=== PATIENT | female | born 1995 | race Caucasian/White ===

== ENCOUNTER 2023-12-24 06:27 | Emergency (ER) | payer OTHER ==
[2023-12-24 07:02] LABS: APPEARANCE,URINE CLEAR (CLEAR); BILIRUBIN,URINE NEGATIVE (NEGATIVE); COLOR,URINE YELLOW (YELLOW); GLUCOSE,URINE NEGATIVE (NEGATIVE); KETONES,URINE NEGATIVE (NEGATIVE); LEUKOCYTE ESTERASE,URINE TRACE (NEGATIVE); NITRITE,URINE NEGATIVE (NEGATIVE); OCCULT BLOOD,URINE NEGATIVE (NEGATIVE); PH,URINE 6.5 (5.0-9.0); PROTEIN,URINE NEGATIVE (NEGATIVE); UROBILINOGEN,URINE 0.2 mg/dL (0.2-1.0)
[2023-12-24] MEDS: Sodium Chloride 0.9% 10 ML Syringe FLUSH PRN (07:25)
[2023-12-24] MEDS: Ketorolac 30 MG/ML SDV IVPUSH ONE (07:28)
[2023-12-24] MEDS: Sodium Chloride 0.9% 1,000 ML IV ONE (07:28)
[2023-12-24] MEDS: Ondansetron 4 MG/2 ML SDV IV ONE (07:29)
[2023-12-24 07:51] LABS: ALBUMIN 3.7 g/dL (3.4-5.0); ANION GAP 13.8 mEq/L (7-13); BILIRUBIN TOTAL 0.4 mg/dL (0.2-1.0); BUN/CREATININE RATIO 9.5 (No establ ref range); CALCIUM 8.9 mg/dL (8.5-10.1); CREATININE 0.95 mg/dL (0.55-1.02); EST CRCL DRUG DOSING (CG) 87.27 mL/min; POTASSIUM,K 3.8 mmol/L (3.5-5.1); PROTEIN TOTAL,TP 7.4 g/dL (6.4-8.2)
[2023-12-24 08:00] LABS: BASOPHILS PERCENT AUTO 0.3 % (0.0-1.0); EOSINOPHILS PERCENT AUTO 0.1 % (1.0-3.0); HEMATOCRIT 43.2 % (37.0-47.0); HEMOGLOBIN 14.3 g/dL (12.0-16.0); MEAN CORPUSCULAR HEMOGLOBIN 29.8 pg (27.0-34.0); MEAN CORPUSCULAR HGB CONC 33.1 g/dL (33.0-35.0); MONOCYTES PERCENT AUTO 10.9 % (2-8); NEUTROPHILS PERCENT AUTO 70.7 % (42.2-75.2); PLATELET COUNT,PLT 299 10^3/uL (150-450); WHITE BLOOD CELL COUNT,WBC 9.4 10^3/uL (5.0-10.0)
[2023-12-24 08:04] LABS: BACTERIA,URINE RARE /HPF (0-FEW/HPF); EPITHELIAL CELLS,URINE FEW /HPF (NOT SEEN); MUCUS,URINE FEW /LPF (NOT SEEN); RBC,URINE NOT SEEN /HPF (0-5)
== END 2023-12-24 08:34 | disposition home or self-care (01) ==
LOC: DL.ED 06:27
DX: B34.9 Viral infection, unspecified (principal)
CPT/HCPCS: 36415; 80053; 81001; 81025; 85025; 87086; 87635; 87804; 96361; 96374; 96375; 99284; J1885; J2405; J7030; J3490; U0002

== ENCOUNTER 2023-12-28 08:38 | Inpatient (IN) | payer OTHER ==
[2023-12-28] MEDS: Albuterol/Ipratropium 3.0-0.5 MG/3 ML Neb Soln NEB ONE (09:28)
[2023-12-28 09:31] LABS: BASOPHILS PERCENT AUTO 0.3 % (0.0-1.0); HEMATOCRIT 39.3 % (37.0-47.0); HEMOGLOBIN 13.1 g/dL (12.0-16.0); LYMPHOCYTES PERCENT AUTO 18.4 % (20.5-50.1); MEAN CORPUSCULAR HGB CONC 33.3 g/dL (33.0-35.0); MEAN CORPUSCULAR VOLUME 89.9 fL (80-100); MONOCYTES PERCENT AUTO 10.8 % (2-8); NEUTROPHILS PERCENT AUTO 69.5 % (42.2-75.2); PLATELET COUNT,PLT 309 10^3/uL (150-450); RED BLOOD CELL COUNT 4.37 10^6/uL (4.2-5.4); WHITE BLOOD CELL COUNT,WBC 9.3 10^3/uL (5.0-10.0)
[2023-12-28] MEDS: Sodium Chloride 0.9% 1,000 ML IV ONE (09:42)
[2023-12-28 09:50] LABS: ALANINE AMINOTRANSFERASE,ALT 58 U/L (14-59); ALBUMIN 3.1 g/dL (3.4-5.0); ALKALINE PHOSPHATASE 122 U/L (46-116); ANION GAP 15.8 mEq/L (7-13); ASPARTATE AMNIOTRANSFERASE,AST 34 U/L (15-37); BILIRUBIN TOTAL 0.3 mg/dL (0.2-1.0); BLOOD UREA NITROGEN,BUN 5 mg/dL (7-18); BUN/CREATININE RATIO 5.4 (No establ ref range); CALCIUM 8.9 mg/dL (8.5-10.1); CARBON DIOXIDE,CO2 27 mmol/L (21-32); CHLORIDE,CL 101 mmol/L (98-107); CREATININE 0.92 mg/dL (0.55-1.02); EST CRCL DRUG DOSING (CG) 90.11 mL/min; GLUCOSE RANDOM 114 mg/dL (70-99); HCG QUALITATIVE,SERUM NEGATIVE (NEGATIVE); MAGNESIUM 2.2 mg/dL (1.8-2.4); POTASSIUM,K 3.8 mmol/L (3.5-5.1); PROTEIN TOTAL,TP 7.2 g/dL (6.4-8.2); SODIUM,NA 140 mmol/L (136-145)
[2023-12-28] MEDS: Iopamidol 612 MG/ML 100 ML Bottle IVPUSH ONE ×2 (09:51→10:04)
[2023-12-28 09:53] LABS: A/G RATIO 0.76; ESTIMATED GFR 88 mL/min (>=60)
[2023-12-28 09:54] LABS: LACTIC ACID 0.7 mmol/L (0.4-2.0)
[2023-12-28 10:28] LABS: APPEARANCE,URINE CLEAR (CLEAR); BILIRUBIN,URINE NEGATIVE (NEGATIVE); COLOR,URINE YELLOW (YELLOW); GLUCOSE,URINE NEGATIVE (NEGATIVE); KETONES,URINE 40 (NEGATIVE); LEUKOCYTE ESTERASE,URINE NEGATIVE (NEGATIVE); NITRITE,URINE NEGATIVE (NEGATIVE); OCCULT BLOOD,URINE NEGATIVE (NEGATIVE); PROTEIN,URINE NEGATIVE (NEGATIVE); UROBILINOGEN,URINE 0.2 mg/dL (0.2-1.0)
[2023-12-28] MEDS: methylPREDNISolone Sodium Succinate 125 MG/2 ML SDV IVPUSH ONE (11:47)
[2023-12-28] MEDS: cefTRIAXone 1 GM Vial IVPUSH ONE (11:47)
[2023-12-28] MEDS: Azithromycin 500 MG in Sodium Chloride 0.9% 250 ML IV ONE (11:47)
[2023-12-28] MEDS: Ondansetron 4 MG/2 ML SDV IVPUSH ONE (12:02)
[2023-12-28] MEDS: Ondansetron 4 MG/2 ML SDV ONE (12:33)
[2023-12-28] MEDS ORDERED: Acetaminophen/HYDROcodone 325-5 MG Tab PO PRN (13:11)
[2023-12-28] MEDS ORDERED: Albuterol/Ipratropium 3.0-0.5 MG/3 ML Neb Soln NEB PRN (13:11)
[2023-12-28] MEDS ORDERED: Acetaminophen 325 MG Tab PO PRN (13:11)
[2023-12-28] MEDS ORDERED: Sennosides/Docusate Sodium 50-8.6 MG Tab PO PRN (13:11)
[2023-12-28] MEDS ORDERED: Magnesium Hydroxide 400 MG/5 ML Susp 30 ML Cup PO PRN (13:11)
[2023-12-28] MEDS ORDERED: Polyethylene Glycol 3350 Powder 17 GM Packet PO PRN (13:11)
[2023-12-28] MEDS ORDERED: hydrALAZINE 20 MG/ML SDV IVPUSH PRN (13:18)
[2023-12-28] MEDS ORDERED: guaiFENesin/Dextromethorphan 100-10 MG/5 ML Soln 5 ML Cup PO PRN (13:18)
[2023-12-28] MEDS ORDERED: Metoprolol Tartrate 5 MG/5 ML SDV IVPUSH PRN (13:18)
[2023-12-28] MEDS ORDERED: Acetaminophen/Butalbital/Caffeine 325-50-40 MG Tab PO PRN (13:19)
[2023-12-28] MEDS ORDERED: Oxymetazoline 0.05% Nasal Spray 30 ML Bottle NAS PRN (13:19)
[2023-12-28] MEDS: guaiFENesin 600 MG Tab.ER PO ONE (14:37)
[2023-12-28] MEDS: guaiFENesin 600 MG Tab.ER PO SCH (21:20)
[2023-12-28] MEDS: Temazepam 15 MG Cap PO PRN (21:23)
[2023-12-29] MEDS: Ketorolac 30 MG/ML SDV IVPUSH PRN (06:19)
[2023-12-29 06:38] LABS: HEMATOCRIT 36.1 % (37.0-47.0); MEAN CORPUSCULAR HEMOGLOBIN 29.9 pg (27.0-34.0); MEAN CORPUSCULAR HGB CONC 33.2 g/dL (33.0-35.0); PLATELET COUNT,PLT 342 10^3/uL (150-450); RED BLOOD CELL COUNT 4.01 10^6/uL (4.2-5.4); WHITE BLOOD CELL COUNT,WBC 10.2 10^3/uL (5.0-10.0)
[2023-12-29 06:48] LABS: BASOPHILS PERCENT AUTO 0.1 % (0.0-1.0); EOSINOPHILS PERCENT AUTO 0.1 % (1.0-3.0); MONOCYTES PERCENT AUTO 11.8 % (2-8)
[2023-12-29 07:04] LABS: ALBUMIN 2.7 g/dL (3.4-5.0); BILIRUBIN TOTAL 0.3 mg/dL (0.2-1.0); BUN/CREATININE RATIO 10.8 (No establ ref range); C-REACTIVE PROTEIN 12.89 ng/dL (<=0.50); CALCIUM 8.7 mg/dL (8.5-10.1); CREATININE 0.74 mg/dL (0.55-1.02); EST CRCL DRUG DOSING (CG) 112.03 mL/min; MAGNESIUM 2.2 mg/dL (1.8-2.4); PROTEIN TOTAL,TP 6.7 g/dL (6.4-8.2)
[2023-12-29 07:05] LABS: A/G RATIO 0.68
[2023-12-29 07:56] LABS: BAND PERCENT MAN 1 %; LYMPHOCYTES PERCENT MAN 30 % (20-50); MONOCYTES PERCENT MAN 8 % (2-8); SEG NEUTROPHILS PERCENT MAN 61 % (42-75)
[2023-12-29] MEDS: Dexamethasone 6 MG TABLET PO SCH (09:02)
[2023-12-29] MEDS: Famotidine 20 MG Tab PO SCH (09:02)
[2023-12-29] MEDS: cefTRIAXone 1 GM Vial IVPUSH SCH (11:33)
[2023-12-29] MEDS: Ondansetron 4 MG/2 ML SDV IVPUSH PRN (11:33)
[2023-12-29] MEDS: Azithromycin 500 MG in Sodium Chloride 0.9% 250 ML IV SCH (11:33)
[2023-12-30 06:24] LABS: HEMATOCRIT 37.5 % (37.0-47.0); HEMOGLOBIN 12.5 g/dL (12.0-16.0); MEAN CORPUSCULAR HEMOGLOBIN 29.8 pg (27.0-34.0); MEAN CORPUSCULAR HGB CONC 33.3 g/dL (33.0-35.0); MEAN CORPUSCULAR VOLUME 89.5 fL (80-100); PLATELET COUNT,PLT 407 10^3/uL (150-450); RED BLOOD CELL COUNT 4.19 10^6/uL (4.2-5.4); WHITE BLOOD CELL COUNT,WBC 12.2 10^3/uL (5.0-10.0)
[2023-12-30 06:27] LABS: BASOPHILS PERCENT AUTO 0.2 % (0.0-1.0); EOSINOPHILS PERCENT AUTO 0.2 % (1.0-3.0); LYMPHOCYTES PERCENT AUTO 25.5 % (20.5-50.1); MONOCYTES PERCENT AUTO 7.8 % (2-8); NEUTROPHILS PERCENT AUTO 66.3 % (42.2-75.2)
[2023-12-30 07:01] LABS: LYMPHOCYTES PERCENT MAN 23 % (20-50); MONOCYTES PERCENT MAN 10 % (2-8); SEG NEUTROPHILS PERCENT MAN 67 % (42-75)
[2023-12-30 07:08] LABS: ANION GAP 14.8 mEq/L (7-13); BILIRUBIN TOTAL 0.1 mg/dL (0.2-1.0); BUN/CREATININE RATIO 16.7 (No establ ref range); C-REACTIVE PROTEIN 5.67 ng/dL (<=0.50); CALCIUM 9.1 mg/dL (8.5-10.1); CREATININE 0.78 mg/dL (0.55-1.02); EST CRCL DRUG DOSING (CG) 106.29 mL/min; MAGNESIUM 2.1 mg/dL (1.8-2.4); POTASSIUM,K 3.8 mmol/L (3.5-5.1); PROTEIN TOTAL,TP 6.9 g/dL (6.4-8.2)
[2023-12-30 07:10] LABS: A/G RATIO 0.77
[2023-12-30] MEDS: Azithromycin 500 MG in Sodium Chloride 0.9% 250 ML IV SCH (08:52)
[2023-12-30] MEDS: cefTRIAXone 1 GM Vial IVPUSH SCH (08:53)
== END 2023-12-30 11:36 | disposition home or self-care (01) | DRG 195 ==
LOC: DL.ED 08:38 → DL.MS 12:21 → DL.ED 12:49
PROVIDERS: ADMIT Internal Medicine; ATTEND Internal Medicine
DX: J18.9 Pneumonia, unspecified organism (principal); E86.0 Dehydration; J06.9 Acute upper respiratory infection, unspecified; R73.9 Hyperglycemia, unspecified; D72.829 Elevated white blood cell count, unspecified
CPT/HCPCS: 36415; 70450; 70491; 71046; 80053; 81003; 83605; 83735; 84703; 85025; 86140; 86308; 87070; 87081; 87205; 87430; 87799; 87804; 96365; 96375; 99284; 99284-25; A9270-GY; J0456; J0696; J1885; J2405; J2919; J7030; J7050; J7620-GY; J8540; Q9967; U0002